=== PATIENT | female | born 1995 | race Caucasian/White ===

== ENCOUNTER 2018-03-04 16:55 | Inpatient (IN) | payer OTHER ==
[~2018-03-04 16:55] MED LIST: AMOXICILLIN500 MG PO; NORCO 5-325 TA1 EACH PO; ORTHO TRI-CYCL1 EAC1 PO; PRENATAL 19 TA1 EAC1 PO
--- NOTE | 2018-03-04 21:00 | PR ---
[facility] [address] [facility] [place] [address] Signed Progress Notes IP Datetime Report Generated by CPN: 03/04/2018 21:00 PROGRESS NOTES: [id number] Impression: Normal progression of labor; Reactive non-stress test Procedures: Artificial ROM; Sterile Vag Exam Plan: Continue present management; Anticipate Vaginal Delivery Informed Consent Obtain: Vaginal Delivery; Risks, Benefits and Alternatives Discussed VITAL SIGNS: [id number] Vital Signs: Reviewed EXAM: [id number] Dilatation: 6.0 Effacement: 80 Station: -2 Uterine Contractions: every one to three minutes MEMBRANES: [id number] Membrane Status: Bulging ROM Note: amniotomy performed - light meconium, copious amount of fluid Comments: patient beginning to breathe through contractions. Wanting epidural Fetus A: [id number] FHR Baseline: 150's Variability: Moderate 6-25bpm Accelerations: 15X15 Decelerations: None FHR Category: Category I Presentation: Vertex Comments on Fetus A: reactive Fetus B: [id number] Signing Physician: Serena Moreno MD Copies: ~ *Electronically Signed* 03/04/18 2100 SERENA MORENO MD PATIENT NAME: KEYON HODGES PROGRESS NOTE DATE OF : [birth year] PHYSICIAN: SERENA MORENO MD RPT #: [id number] REPORT IS CONFIDENTIAL AND NOT TO BE RELEASED WITHOUT AUTHORIZATION
--- NOTE | 2018-03-04 22:44 | PR ---
[facility] [address] [facility] [place] [address] Signed Progress Notes IP Datetime Report Generated by CPN: 03/04/2018 22:44 PROGRESS NOTES: [id number] Impression: Normal progression of labor Procedures: Sterile Vag Exam Plan: Continue present management; Anticipate Vaginal Delivery Informed Consent Obtain: Vaginal Delivery VITAL SIGNS: [id number] Vital Signs: Reviewed EXAM: [id number] Dilatation: 8.0 Effacement: 90 Station: -2 Uterine Contractions: every two to four minutes MEMBRANES: [id number] Membrane Status: Ruptured ROM Note: amniotomy performed - light meconium, copious amount of fluid Comments: paient more comfortable with epidural but still breathing through contractions Fetus A: [id number] FHR Baseline: 150's Variability: Moderate 6-25bpm Accelerations: 15X15 Decelerations: Early FHR Category: Category I Presentation: Vertex Comments on Fetus A: reactive Fetus B: [id number] Signing Physician: Serena Moreno MD Copies: ~ *Electronically Signed* 03/04/18 2244 SERENA MORENO MD PATIENT NAME: CARROLLKEYON Booth PROGRESS NOTE DATE OF : [birth year] PHYSICIAN: SERENA MORENO MD RPT #: [id number] REPORT IS CONFIDENTIAL AND NOT TO BE RELEASED WITHOUT AUTHORIZATION
--- NOTE | 2018-03-05 09:36 | PR ---
[facility] [address] [facility] [place], [place] [address] Signed PP Progress Notes Datetime Report Generated by CPN: 03/05/2018 09:36 SUBJECTIVE: [id number] Pain: Within normal limits Nausea/Vomiting: Denies Flatus: Yes Vital Signs: [id number] Vital Signs: Reviewed EXAM: [id number] Cardiovascular: Normal Respiratory: Normal Abdomen/Uterus: Normal Lochia: Normal Vulva/Perineum: Normal Breasts: Normal CVA Tenderness: Normal Extremities: Normal Incision: Not Applicable Progress: Normal Exam Comments: patient pale appearing IMPRESSION/PLAN/PROCEDURES: [id number] Impression: Normal progression Other Impression: hemorrhage Plan: Continue present management Procedures: None Progress Notes: patient doing well post , anemia is mild Signing Physician: Serena Moreno MD Copies: ~ *Electronically Signed* 03/05/18 0936 SERENA MORENO MD PATIENT NAME: KEYON HODGES PROGRESS NOTE DATE OF : [birth year] PHYSICIAN: SERENA MORENO MD RPT #: [id number] REPORT IS CONFIDENTIAL AND NOT TO BE RELEASED WITHOUT AUTHORIZATION
== END 2018-03-06 13:15 | disposition home or self-care (01) | DRG 774 ==
LOC: FBCO 16:55 → FBC 18:22
PROVIDERS: ADMIT Obstetrics & Gynecology
PROC: 10E0XZZ Delivery of Products of Conception, External Approach (ICD-10-PCS; principal; 2018-03-04)
PROC: 10907ZC Drainage of Amniotic Fluid, Therapeutic from Products of Conception, Via Natural or Artificial Opening (ICD-10-PCS; 2018-03-04)
PROC: 00HU33Z Insertion of Infusion Device into Spinal Canal, Percutaneous Approach (ICD-10-PCS; 2018-03-04)
PROC: 3E0R3BZ Introduction of Anesthetic Agent into Spinal Canal, Percutaneous Approach (ICD-10-PCS; 2018-03-04)
DX: O66.0 Obstructed labor due to shoulder dystocia (principal); O72.1 Other immediate postpartum hemorrhage; O77.0 Labor and delivery complicated by meconium in amniotic fluid; O99.52 Diseases of the respiratory system complicating childbirth; J45.909 Unspecified asthma, uncomplicated; O76 Abnormality in fetal heart rate and rhythm complicating labor and delivery; O26.893 Other specified pregnancy related conditions, third trimester; Z67.91 Unspecified blood type, Rh negative; Z87.891 Personal history of nicotine dependence; Z3A.39 39 weeks gestation of pregnancy; Z37.0 Single live birth
CPT/HCPCS: 01960; 36415; 59025; 85027; 99214; J2210; J2550; J2590; J7120

== ENCOUNTER 2020-11-15 00:11 | Inpatient (IN) | payer OTHER ==
[~2020-11-15] VITALS: Ht 165.1 cm; Wt 83.9 kg
--- NOTE | 2020-11-15 00:52 | NUR ---
[facility] RAPID COVID TEST DONE PER ORDER. COVID TEST COLLECTED FROM BOTH NARES W/O ISSUE. PT TOLERATED WELL.
--- NOTE | 2020-11-15 08:16 | PR ---
[facility] [place] [facility] [address] [facility] [place] [address] Signed Progress Notes IP Datetime Report Generated by CPN: 11/15/2020 08:16 PROGRESS NOTES: [id number] Impression: Normal Progression of Labor Procedures: Artificial ROM VITAL SIGNS: [id number] Vital Signs: Reviewed; Within Normal Limits EXAM: [id number] Dilatation: 3.0 Effacement: 70 Station: -2 Contractions: irregular MEMBRANES: [id number] Membranes Status: Ruptured Comments: Tolerating contractions well, considering Epidural later FETUS A: [id number] FHR Baseline: 130 Variability: Moderate 6-25bpm Accelerations: 15X15 Presentation: Vertex FETUS B: [id number] Signing Physician: Vineet Shelley MD Copies: ~ *Electronically Signed* 11/15/20 0816 VINEET SHELLEY MD PATIENT NAME: KEYON HODGES PROGRESS NOTE DATE OF : 93 PHYSICIAN: VINEET SHELLEY MD RPT #: [id number] REPORT IS CONFIDENTIAL AND NOT TO BE RELEASED WITHOUT AUTHORIZATION
--- NOTE | 2020-11-15 12:05 | PR ---
[facility] [address] [place] [address] Signed PP Progress Notes Datetime Report Generated by CPN: 11/15/2020 12:05 SUBJECTIVE: [id number] Pain: Within Normal Limits Nausea/Vomiting: Denies Vital Signs: S1084261 Vital Signs: Reviewed; Within Normal Limits Abdomen/Uterus: Normal Lochia: Normal Extremities: Normal Exam Comments: Uterus firm, nontender, minimal vaginal bleeding IMPRESSION/PLAN/PROCEDURES: [id number] Other Impression: PP Hemorrhage Progress Notes: No complaints. Slow but continuous vaginal bleeding (up to 650 ml total PP) Add 20 units Pitocin to IV bag (already has 20 units) Start TXA 1 gm IV Will continue monitoring Signing Physician: Vineet Shelley MD Copies: ~ *Electronically Signed* 11/15/20 1205 VINEET SHELLEY MD PATIENT NAME: KEYON HODGES PROGRESS NOTE DATE OF : [birth year] PHYSICIAN: VINEET SHELLEY MD RPT #: [id number] REPORT IS CONFIDENTIAL AND NOT TO BE RELEASED WITHOUT AUTHORIZATION
--- NOTE | 2020-11-16 11:32 | PR ---
[facility] [address] [facility] [place], [place] [address] Signed PP Progress Notes Datetime Report Generated by CPN: 11/16/2020 11:32 SUBJECTIVE: [id number] Pain: Within Normal Limits Nausea/Vomiting: Denies Vital Signs: E2963841 Vital Signs: Reviewed; Within Normal Limits Notable Details: PP Hgb/Hct = 9.4/28.1 Abdomen/Uterus: Normal Lochia: Normal Extremities: Normal Exam Comments: Uterus firm, nontender, minimal vaginal bleeding Placenta easily removed and intact at delivery, with no lacerations IMPRESSION/PLAN/PROCEDURES: [id number] Impression: Normal Progression Other Impression: PP Hemorrhage Plan: Discharge Procedures: None Progress Notes: Doing well, without complaint, excess bleeding from yesterday much better, ready to go home. Signing Physician: Vineet Shelley MD Copies: ~ *Electronically Signed* 11/16/20 1132 VINEET SHELLEY MD PATIENT NAME: KEYON HODGES PROGRESS NOTE DATE OF : 93 PHYSICIAN: VINEET SHELLEY MD RPT #: [id number] REPORT IS CONFIDENTIAL AND NOT TO BE RELEASED WITHOUT AUTHORIZATION
== END 2020-11-16 15:05 | disposition home or self-care (01) | DRG 807 ==
LOC: FBC 00:11
PROVIDERS: ADMIT General Practice; ATTEND General Practice
PROC: 10E0XZZ Delivery of Products of Conception, External Approach (ICD-10-PCS; principal; 2020-11-15)
PROC: 10907ZC Drainage of Amniotic Fluid, Therapeutic from Products of Conception, Via Natural or Artificial Opening (ICD-10-PCS; 2020-11-15)
PROC: 3E0P7VZ Introduction of Hormone into Female Reproductive, Via Natural or Artificial Opening (ICD-10-PCS; 2020-11-15)
PROC: 00HU33Z Insertion of Infusion Device into Spinal Canal, Percutaneous Approach (ICD-10-PCS; 2020-11-15)
PROC: 3E0R3BZ Introduction of Anesthetic Agent into Spinal Canal, Percutaneous Approach (ICD-10-PCS; 2020-11-15)
DX: O99.334 Smoking (tobacco) complicating childbirth (principal); Z37.0 Single live birth; F17.210 Nicotine dependence, cigarettes, uncomplicated; Z3A.40 40 weeks gestation of pregnancy; O69.81X0 Labor and delivery complicated by cord around neck, without compression, not applicable or unspecified; O72.1 Other immediate postpartum hemorrhage; O99.52 Diseases of the respiratory system complicating childbirth; J45.909 Unspecified asthma, uncomplicated; Z79.899 Other long term (current) drug therapy
CPT/HCPCS: 01960; 36415; 85027; A9270; C9803; J2590; J2795; J3010; U0003

== ENCOUNTER 2022-12-20 00:14 | Inpatient (IN) | payer OTHER ==
[~2022-12-20] VITALS: Ht 165.1 cm; Wt 88.5 kg
--- NOTE | 2022-12-20 12:26 | PR ---
[facility] [address] [facility] [place], [place] [address] Signed Progress Notes IP Datetime Report Generated by CPN: 12/20/2022 12:25 PROGRESS NOTES: [id number] Impression: Reassuring Heart Rate VITAL SIGNS: Z8665562 Vital Signs: Reviewed; Within Normal Limits EXAM: [id number] Dilatation: 3.0 Effacement: 50 Station: -3 Contractions: acontractile MEMBRANES: [id number] Comments: Cervix far posterior, discussed low-dose pitocin prior to AROM to reduce risk of cord prolapse from poorly applied head. Pt requests epidural prior. Plan: epidural, then low-dose pitocin, AROM once able EFW 3108g on 12/03/22, 61% FETUS A: [id number] FHR Baseline: 140 Variability: Moderate 6-25bpm Accelerations: 15X15 Decelerations: None FHR Category: Category I Presentation: Vertex Comments on Fetus A: No evidence of acidemia FETUS B: [id number] Signing Physician: Joanna Paz DO Copies: ~ *Electronically Signed* 12/20/22 1225 JOANNA PAZ DO PATIENT NAME: KEYON HODGES PROGRESS NOTE DATE OF : 93 PHYSICIAN: JOANNA PAZ DO RPT #: [id number] REPORT IS CONFIDENTIAL AND NOT TO BE RELEASED WITHOUT AUTHORIZATION
--- NOTE | 2022-12-20 15:34 | PR ---
[facility] [address] [facility] [place], [place] [address] Signed Progress Notes IP Datetime Report Generated by CPN: 12/20/2022 15:34 PROGRESS NOTES: [id number] Impression: Reassuring Heart Rate Procedures: Artificial ROM Plan: Continue Present Management VITAL SIGNS: B4072047 Vital Signs: Reviewed; Within Normal Limits EXAM: [id number] Dilatation: 3.0 Effacement: 50 Station: -3 Contractions: acontractile MEMBRANES: L6977540 Membranes Status: Ruptured Comments: AROM performed. Continue low-dose pitocin and continuous monitoring. Recheck in 2h, sooner if needed FETUS A: [id number] FHR Baseline: 140 Variability: Moderate 6-25bpm Accelerations: 15X15 Decelerations: None FHR Category: Category I Presentation: Vertex Comments on Fetus A: No evidence of acidemia FETUS B: [id number] Signing Physician: Joanna Paz DO Copies: ~ *Electronically Signed* 12/20/22 1534 JOANNA PAZ DO PATIENT NAME: KEYON HODGES PROGRESS NOTE DATE OF : [birth year] PHYSICIAN: JOANNA PAZ DO RPT #: [id number] REPORT IS CONFIDENTIAL AND NOT TO BE RELEASED WITHOUT AUTHORIZATION
--- NOTE | 2022-12-21 08:36 | PR ---
[facility] [address] [facility] [place], [place] [address] Signed PP Progress Notes Datetime Report Generated by N: 12/21/2022 08:36 SUBJECTIVE: [id number] Nausea/Vomiting: Denies Flatus: Yes Vital Signs: E2821667 Vital Signs: Reviewed; Within Normal Limits Cardiovascular: Normal Respiratory: Normal Abdomen/Uterus: Normal Lochia: Normal Extremities: Normal Progress: Normal Exam Comments: NAD, eating breakfast No dyspnea/ retractions RRR Abd SNTND, FFBU Ext: trace edema, neg Korey's BL IMPRESSION/PLAN/PROCEDURES: [id number] Impression: Normal Progression Progress Notes: PPD#1 s/p complicated by increased bleeding with h/o PPH -s/p TXA 1g IV, cytotec 1000mcg WI, hgb 10.1 this am from 10.5 on admission. Asymptomatic -progressing well , hoping to stay tonight and go home tomorrow -planning partner vasectomy for contraception Signing Physician: Joanna Paz DO Copies: ~ *Electronically Signed* 12/21/22 0836 JOANNA PAZ DO PATIENT NAME: KEYON HODGES PROGRESS NOTE DATE OF : [birth year] PHYSICIAN: JOANNA PAZ DO RPT #: [id number] REPORT IS CONFIDENTIAL AND NOT TO BE RELEASED WITHOUT AUTHORIZATION
--- NOTE | 2022-12-22 11:38 | PR ---
[facility] [address] [facility] [place], [place] [address] Signed PP Progress Notes Datetime Report Generated by LAWRENCE: 12/22/2022 11:38 SUBJECTIVE: [id number] Nausea/Vomiting: Denies Flatus: Yes Bowel Movement: Yes Vital Signs: [id number] Vital Signs: Reviewed; Within Normal Limits Cardiovascular: Normal Respiratory: Normal Abdomen/Uterus: Normal Lochia: Normal Extremities: Normal Progress: Normal Exam Comments: NAD RRR No dyspnea/ retractions Abd: SNTND, FFBU Ext: trace edema neg Korey's BL IMPRESSION/PLAN/PROCEDURES: [id number] Impression: Normal Progression Plan: Continue Present Management; Discharge Other Procedures: Baby B negative Progress Notes: PPD#2 s/p -progressing well -planning discharge today H/o PPH: hgb 10.5 on admission (chronic anemia of ), 10.1 day 1 s/p TXA 1g and cytotec 1000mcg Rh negative - baby B negative Anticipate DC today. , baby started cluster feeding overnight. Partner vasectomy for contraception. Signing Physician: Joanna Paz DO *Electronically Signed* 12/22/22 1138 JOANNA PAZ DO PATIENT NAME: KEYON HODGES PROGRESS NOTE DATE OF : 93 PHYSICIAN: JOANNA PAZ #: [id number] REPORT IS CONFIDENTIAL AND NOT TO BE RELEASED WITHOUT AUTHORIZATION
== END 2022-12-22 12:12 | disposition home or self-care (01) | DRG 806 ==
LOC: FBC 00:14
PROVIDERS: ADMIT Obstetrics & Gynecology; ATTEND Obstetrics & Gynecology
PROC: 10E0XZZ Delivery of Products of Conception, External Approach (ICD-10-PCS; principal; 2022-12-20)
PROC: 3E0P7VZ Introduction of Hormone into Female Reproductive, Via Natural or Artificial Opening (ICD-10-PCS; 2022-12-20)
PROC: 10907ZC Drainage of Amniotic Fluid, Therapeutic from Products of Conception, Via Natural or Artificial Opening (ICD-10-PCS; 2022-12-20)
PROC: 00HU33Z Insertion of Infusion Device into Spinal Canal, Percutaneous Approach (ICD-10-PCS; 2022-12-20)
PROC: 3E0R3BZ Introduction of Anesthetic Agent into Spinal Canal, Percutaneous Approach (ICD-10-PCS; 2022-12-20)
DX: O99.02 Anemia complicating childbirth (principal); O72.1 Other immediate postpartum hemorrhage; Z37.0 Single live birth; O26.893 Other specified pregnancy related conditions, third trimester; Z67.21 Type B blood, Rh negative; D64.9 Anemia, unspecified; Z3A.39 39 weeks gestation of pregnancy
CPT/HCPCS: 01960; 36415; 85027; 86850; 86870; 86900; 86901; A9270; J2590; J2795; J3010

== ENCOUNTER 2024-06-17 05:58 | Day surgery (SDC) | payer OTHER ==
[2024-06-15 12:27] VITALS: BP 120/75
[~2024-06-17] VITALS: Ht 162.6 cm; Wt 76.4 kg
[2024-06-17] VITALS (7 sets, daily range): BP systolic 124–137; BP diastolic 70–112
[~2024-06-17 05:58] MED LIST changes: +AMOX TR-K CLV1 EAC1 PO; +LACTATED RINGER'S 1,000 ML IV SCH; +ONDANSETRON ODT8 MG PO; +PROPYLTHIOURACI50 MG PO
[2024-06-17] MEDS ORDERED: SUCCINYLCHOLINE IN 0.9% NACL 200 MG/10 ML SYRINGE ONE (06:45)
[2024-06-17] MEDS ORDERED: fentaNYL citrate 100 MCG/2 ML VIAL ONE (06:45)
[2024-06-17] MEDS ORDERED: LIDOCAINE HCL 2% 5 ML SDV ONE (06:45)
[2024-06-17] MEDS ORDERED: propofoL 200 MG/20 ML VIAL ONE (06:45)
[2024-06-17] MEDS ORDERED: ACETAMINOPHEN 1,000 MG/100 ML VIAL ONE (06:45)
[2024-06-17] MEDS ORDERED: DEXAMETHASONE SOD PHOS 4 MG/ML VIAL ONE (06:45)
[2024-06-17] MEDS ORDERED: MIDAZOLAM HCL 2 MG/2 ML VIAL ONE (06:45)
[2024-06-17] MEDS ORDERED: ondansetron HCL 4 MG/2 ML VIAL ONE (06:45)
[2024-06-17] MEDS ORDERED: ROCURONIUM BROMIDE 50 MG/5 ML SYR ONE (06:45)
[2024-06-17] MEDS ORDERED: atenoloL 25 MG TAB PO SCH (07:00)
[2024-06-17] MEDS ORDERED: FAMOTIDINE 20 MG/ 2 ML VIAL IV SCH (07:00)
[2024-06-17] MEDS ORDERED: METOCLOPRAMIDE HCL 10 MG/2 ML SDV IV SCH (07:00)
[2024-06-17] MEDS ORDERED: LIDOCAINE HCL 1% 5 ML SDV INJ ONE (07:00)
[2024-06-17] MEDS ORDERED: IBLOOD GLUCOSE TEST STRIP 1 EA TEST VI PRN ×2 (07:00→07:45)
[2024-06-17] MEDS ORDERED: OXYTOCIN 10 UNITS/ML VIAL ONE ×4 (07:04→08:42)
[2024-06-17] MEDS ORDERED: LACTATED RINGER'S 1,000 ML IV ONE ×2 (07:35→08:42)
[2024-06-17] MEDS ORDERED: SUGAMMADEX SODIUM 200 MG/2 ML ML ONE (07:40)
[2024-06-17] MEDS ORDERED: droPERidol 5 MG/2 ML VIAL IV PRN (07:45)
[2024-06-17] MEDS ORDERED: PROCHLORPERAZINE EDISYLATE 10 MG/2 ML VIAL IV PRN ×2 (07:45→09:00)
[2024-06-17] MEDS ORDERED: HYDROmorphone HCL 1 MG/ML SYR IV PRN (07:45)
[2024-06-17] MEDS ORDERED: NALOXONE HCL 0.4 MG SYR IV PRN ×2 (07:45→09:00)
[2024-06-17] MEDS ORDERED: fentaNYL citrate 50 MCG/ML SDV IV PRN (07:45)
[2024-06-17] MEDS ORDERED: ondansetron HCL 4 MG/2 ML VIAL IV PRN ×2 (07:45→09:00)
[2024-06-17] MEDS ORDERED: TRANEXAMIC ACID 1,000 MG/10 ML AMP ONE (08:37)
[2024-06-17] MEDS ORDERED: dexmedeTOMIDine HCl 200 MCG/2 ML VIAL ONE (08:50)
[2024-06-17] MEDS ORDERED: MINERAL OIL/CHONDRUS 30 ML BTL PO SCH (09:00)
[2024-06-17] MEDS ORDERED: METOCLOPRAMIDE HCL 10 MG/2 ML SDV IV PRN (09:00)
[2024-06-17] MEDS ORDERED: ondansetron HCL 4 MG TAB PO PRN (09:00)
[2024-06-17] MEDS ORDERED: LIDOCAINE 2% VISCOUS 6 ML SYR TOP ONE (09:00)
[2024-06-17] MEDS ORDERED: MORPHINE SULFATE 10 MG/ML VIAL IV PRN (09:00)
[2024-06-17] MEDS ORDERED: ACETAMINOPHEN 500 MG TAB PO PRN (09:00)
[2024-06-17] MEDS ORDERED: METHYLERGONOVINE MALEATE 0.2 MG PO ONE (09:00)
[2024-06-17] MEDS ORDERED: FAMOTIDINE 20 MG TAB PO PRN (09:00)
[2024-06-17] MEDS ORDERED: OXYCODONE HCL 5 MG TAB PO PRN (09:00)
[2024-06-17] MEDS ORDERED: LACTATED RINGER'S 1,000 ML IV SCH (09:00)
[2024-06-17] MEDS ORDERED: IBUPROFEN 800 MG TAB PO PRN (09:00)
[2024-06-17] MEDS ORDERED: RHO(D) IMMUNE GLOBULIN 1,500 UNIT/2 ML ML IM ONE (09:00)
[2024-06-17] MEDS ORDERED: MAGNESIUM HYDROXIDE/AL HYDROX 30 ML CUP PO PRN (09:00)
--- NOTE | 2024-06-17 09:33 | NUR ---
LE 0925: PT ARRIVES TO FROM PACU. SHE IS AWAKE AND ORIENTED. SHE REPORTS SOME MINOR NAUSEA, NO PAIN. SHE AND ARE EDUCATED ON SIGNS OR SYMPTOMS OF BLEEDING AND TO REPORT TO THIS RN JOCELINE. LE 0930: DR. CORONA COMES AND DISCUSSES PLAN WITH THIS RN. CALL LIGHT WITHIN REACH. SHE IS TOLERATING SIPS OF WATER.
--- NOTE | 2024-06-17 09:44 | NUR ---
FABIOLA 0940: PT IS GIVEN 7UP, FRESH ICE WATER, AND JON CRACKERS. SHE IS ALSO GIVEN 4MG OF ORAL ZOFRAN. SHE IS OK WITH VISITORS AT THIS TIME.
--- NOTE | 2024-06-17 10:26 | NUR ---
LE 1025: PT IS TOLERATING WATER, 7UP, AND JON CRACKERS. SHE REPORTS HER NAUSEA IS BETTER AND GONE. SHE STILL DENIES HAVING ANY PAIN. NO NEW BLEEDING ON PERIPAD. CALL LIGHT WITHIN REACH. PT'S MOM IS AT THE BEDSIDE.
--- NOTE | 2024-06-17 10:34 | NUR ---
06/17/24 Zuri4 JoeToshia Radhames 0855- PT PRESENTS TO PACU, RIGHT LATERAL POSITION. O2 AT 6L PER MASK, BREATHING EVEN AND NON LABORED. SALINE LOCK TO RAC, LR WITH 20 UNITS OF PITOCIN INFUSING TO LAC IV. PT REACTIVE TO STIMULUS, BUT REMAINS ASLEEP AT THIS TIME. ALL MONITORS IN PLACE. ABD SOFT, NON DISTENDED. GRADY CATHETER IN PLACE, DRAINING CLEAR YELLOW URINE. AIMEE PAD IN PLACE WITH SMALL AMOUNT OF BLOOD ON PAD, NO ACTIVE BLEEDING NOTED. 900- PT WAKES TO VERBAL STIMULI. DENIES PAIN OR NAUSEA. PT ITCHING AT FACE AND O2 MASK. MOVED TO ROOM AIR, PT RESTING INTERMITTENTLY. 912- PT ROLLED TO BACK AND SAT UP, NO BLEEDING WITH CHANGE OF POSITION. ICE WATER PROVIDED, TOLERATING WELL. 924- PT TAKEN BACK TO DAY SURGERY VIA STRETCHER, ALERT AND ORIENTED. DENIES PAIN AND NAUSEA. NO FURTHER BLEEDING. REPORT TO KJ CUELLAR AT BEDSIDE. NO SIGNS OF DISTRESS.
--- NOTE | 2024-06-17 11:33 | NUR ---
PT IS DOING WELL. SHE WOULD LIKE TO ORDER FRUIT AND A HAMSANDWICH. PT'S MOM IS STILL AT THE BEDSIDE. CALL LIGHT WITHIN REACH.
--- NOTE | 2024-06-17 11:42 | NUR ---
PERIPAD AND CHUCKS PAD CHANGED OUT. SHE IS REPORTS FEELING A TRICKLE OF BLOOD AND THERE IS A SLOW STEADY FLOW. WILL MONITOR FOR HEAVIER BLEEDING.
--- NOTE | 2024-06-17 12:35 | NUR ---
LE 1230: DR. CORONA IS IN PT ROOM TO CHECK ON PT. SHE HAS A CONVO WITH THIS RN AND GIVES VERBAL ORDER TO REMOVE GRADY.. LE 1235: GRADY BALLOON EMPTIED OF 9MLS OF NS. GRADY REMOVED WITHOUT MINIMAL PAIN. 200MLS OF DARK YELLOW URINE IN GRADY BAG.
--- NOTE | 2024-06-17 13:31 | NUR ---
PT IS DOING WELL. SHE HAS NO PAIN OR NAUSEA. SHE WAS ABLE TO EAT LUNCH WITHOUT ISSUES. CALL LIGHT WITHIN REACH.
--- NOTE | 2024-06-17 14:00 | NUR ---
FABIOLA 1355: PT TURNS ON HER CALL LIGHT FOR ASSISTANCE. SHE IS ASSISTED UP OOB WITH STAND BY ASSIST TO THE BATHROOM. SHE IS ABLE TO AMBULATE INDEPENDENTLY. SHE VOIDS 400MLS OF BLOOD TINGED URINE. SHE AMBULATES BACK TO BED WITHOUT ISSUES.
--- NOTE | 2024-06-17 14:01 | NUR ---
LE 1400: DR. CORONA IS CALLED WITH AN UPDATE, MESSAGE IS LEFT WITH STAFF REQUESTING A CALL BACK.
[2024-06-17] MEDS ORDERED: METHYLERGONOVINE MALEATE 0.2 MG ONE (14:20)
--- NOTE | 2024-06-17 14:47 | NUR ---
LE 1413: DR. CORONA CALLS BACK. SHE IS GIVEN AN UPDATE ON THE PT AND HOW SHE IS DOING (SEE PREVIOUS ASSESSMENTS AND NOTES). SHE GIVES THE VERBAL OK TO SEND THE PT HOME. LE 1425: PT AND ARE GIVEN VERBAL AND WRITTEN DC INSTRUCTIONS. THEY BOTH VERBALIZE UNDERSTANDING. QUESTIONS ARE ASKED AND ANSWERED. SHE IS EDUCATED ON HOW TO BEST DRESS HERSELF AND TO OPEN HER CURTAIN WHEN SHE IS READY. GOES OUT TO GET THE CAR AND BRING IT TO THE FRONT DOORS. LE 1435: PT IS TAKEN TO PERSONAL VEHICLE VIA . SHE SELF-TRANSFERS WITHOUT ISSUES.
--- NOTE | 2024-06-23 18:00 | OR ---
[facility] [address] [place], [place] [address] Signed DATE OF OPERATION: 06/17/2024 SURGEON: Marleny Herrera MD EMBEDDED FIRMWARE DEVELOPER: CHARO Tse, PREOPERATIVE DIAGNOSIS: Partial mole . POSTOPERATIVE DIAGNOSIS: Partial mole , pending final pathology. PROCEDURE: Suction and sharp curettage under ultrasound guidance. ESTIMATED BLOOD LOSS: 800 mL. ANESTHESIA: General ET. DRAINS: Gan catheter. INDICATIONS AND FINDINGS: The patient is a 29-year-old female, 5, para 4, who at her 16 week visit this week was found to have a demise and obvious molar . Because of this, she was scheduled for surgical intervention. At the time of surgery, her uterus was approximately 18 week size. There was a large amount of tissue within the uterus. There was a small amount of macerated tissue identified. PROCEDURE IN DETAIL: The patient was prepped and draped in the dorsal lithotomy position. An open-sided speculum was placed. The anterior lip of the cervix was visualized and grasped with a single-tooth tenaculum. The endocervical canal was then easily dilated to a #16 dilator. She was started on IV Pitocin drip as soon as the surgery started. The larger suction curette was then introduced, which is a #12 curved. This was placed into the uterus and suction curettage was done with removal of a large amount of tissue. Intermittently ring forceps were introduced to remove even more tissue. Finally, when Electronically Signed By: MARLENY HERRERA MD 06/23/[address] [facility] PATIENT NAME: KEYON HODGES OPERATIVE REPORT DATE OF : [birth year] REPORT #: [id number] PHYSICIAN: MARLENY HERRERA MD PCP: NO PRIMARY CARE PHYSICIAN REPORT IS CONFIDENTIAL AND NOT TO BE RELEASED WITHOUT AUTHORIZATION [facility] [address] [place], [place] [address] Signed it was felt that most of the tissue had been removed, sharp curettage was done. Ultrasound was done, which still showed some tissue at the upper fundus as well as in the lower fundus. Suction curettage was repeated as was sharp curettage and this tissue was removed completely. The ultrasound showed a thin endometrial stripe at the conclusion. The bleeding was much less at the conclusion of the procedure. The uterus was approximately 14 week size. The tenaculum was removed and there was initial bleeding from the right hand tenaculum site. This did not respond to pressure and a [id number] suture of 0 chromic was placed to control this bleeding. Otherwise, there was minimal bleeding from the cervix. The speculum was removed and the patient was taken to the recovery room in good condition. All sponge and needle counts were correct. MD RAI Rondon/DANIAL /[id number] Copies: ~ Electronically Signed By: MARLENY HERRERA MD 06/23/[address] [facility] PATIENT NAME: KEYON HODGES OPERATIVE REPORT DATE OF : [birth year] REPORT #: [id number] PHYSICIAN: MARLENY HERRERA MD PCP: NO PRIMARY CARE PHYSICIAN REPORT IS CONFIDENTIAL AND NOT TO BE RELEASED WITHOUT AUTHORIZATION
--- NOTE | 2024-06-28 16:43 | PATH ---
[facility] [address] [facility] [place], [place] [address] Signed SPECIMEN(S): A PARTIAL MOLE SPECIMEN(S): B ADDITIONAL PARTIAL MOLE SPECIMEN SOURCE: A. PARTIAL MOLE B. 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 FINAL PATHOLOGIC DIAGNOSIS: A. Partial mole: - Chorionic villi with focal edema, enlargement, and focal cytotrophoblast proliferation. - See Comment. B. Additional partial mole: - Chorionic villi with focal edema, enlargement, and focal cytotrophoblast proliferation. COMMENT: The chorionic villi show variably-sized villi with focal cytotrophoblast proliferation and focal stromal edema and villous enlargement involving a minority of the chorionic villi. 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 A P57 immunostain (block A2 with appropriate controls noted) shows retained staining within the cytotrophoblasts and villous stromal cells, consistent with the diagnosis and showing no evidence of complete mole. As part of [facility]' Quality Improvement Program, this case was reviewed by another member of our pathology staff. JVR:ILYA:eveline MICROSCOPIC EXAMINATION: Histologic sections of all submitted blocks are examined by light microscopy. These findings, together with the gross examination, support the pathologic diagnosis. GROSS DESCRIPTION: A. The specimen, labeled and designated "Giselle Weber, " and designated on the requisition "partial mole," is received in formalin and consists of 13.5 x 12.5 x 2.6 cm aggregate of pink-red spongy soft PATIENT NAME: KEYON WEBER PATHOLOGY DATE OF : [birth year] REPORT #: [id number] PHYSICIAN: HARDEEP DHALIWAL PCP: NO PRIMARY CARE PHYSICIAN REPORT IS CONFIDENTIAL AND NOT TO BE RELEASED WITHOUT AUTHORIZATION [facility] [address] [place], [place] [address] Signed tissue with admixed clear watery fluid-filled cystic structures. No parts are grossly identified. Gunner'S Mate M sections are submitted in (A1-A4). B. The specimen, labeled and designated "Bounds, D, " and designated on the requisition "additional partial mole," is received in formalin and consists of 13.0 x 13.0 x 4.8 cm aggregate pale pink spongy soft tissue with admixed multiple clear watery fluid-filled cystic junctures. No parts are grossly identified. Gunner'S Mate M sections are submitted in (B1-B4). FB (under the direct supervision of a pathologist) The Gross Description was prepared using a voice recognition system. The report was reviewed for accuracy; however, sound-alike word errors, addition and/or deletions may occur. If there is any question about this report, please contact Client Services. ADDITIONAL NOTES: Immunohistochemical and/or in situ hybridization studies if performed in this case included appropriate positive controls that reacted as expected. This test was developed and its performance characteristics determined by [facility]. It has not been cleared or approved by the U.S. Food and Drug Administration. The FDA has determined that such clearance or approval is not necessary. This test is used for clinical purposes. It should not be regarded as investigational or for research. [facility] is certified under the Clinical Laboratory Improvement Amendments of 1988 (CLIA) as qualified to perform high complexity clinical laboratory testing. PERFORMING LABORATORY: Technical component was performed by [facility], [address] [place] [id number] (CLIA# [id number]). Professional interpretation was performed by [facility], [address] [place], [place] [address]., [place] [address] (CLIA#: [id number]). Diagnostician: Seth Brandt MD Pathologist Electronically Signed 06/28/2024 Copies: PATIENT NAME: KEYON WEBER PATHOLOGY DATE OF : [birth year] REPORT #: [id number] PHYSICIAN: HARDEEP PATHOLOGY PCP: NO PRIMARY CARE PHYSICIAN REPORT IS CONFIDENTIAL AND NOT TO BE RELEASED WITHOUT AUTHORIZATION [address] [address] Signed ~ PATIENT NAME: KEYON WEBER PATHOLOGY DATE OF : [birth year] REPORT #: [id number] PHYSICIAN: HARDEEP PATHOLOGY PCP: NO PRIMARY CARE PHYSICIAN REPORT IS CONFIDENTIAL AND NOT TO BE RELEASED WITHOUT AUTHORIZATION
== END 2024-06-17 14:35 | disposition home or self-care (01) ==
LOC: DS 05:58
PROVIDERS: ATTEND Obstetrics & Gynecology
PROC: 10D07Z8 Extraction of Products of Conception, Other, Via Natural or Artificial Opening (ICD-10-PCS; principal; 2024-06-17 07:30)
DX: O01.1 Incomplete and partial hydatidiform mole (principal); J45.909 Unspecified asthma, uncomplicated; E05.00 Thyrotoxicosis with diffuse goiter without thyrotoxic crisis or storm; F17.210 Nicotine dependence, cigarettes, uncomplicated; Z86.16 Personal history of COVID-19
CPT/HCPCS: 00940; 88305; 88342; A9270; J0131; J0330; J1100; J2001; J2250; J2405; J2590; J2704; J2765; J2790; J3010; J3490; J7121